=== PATIENT | female | born 1955 | race Caucasian/White ===

== ENCOUNTER 2025-07-10 13:11 | Outpatient (CLI) | payer BC, MEDICARE ==
[~2025-07-10 13:11] MED LIST: LISI40TA20 PO; NAPR-1168 PO; OMEP40CA21 PO
--- NOTE | 2025-07-10 15:44 | VASCULAR REPORT ---
SEGMENTAL PRESSURES/ANKLE-BRACHIAL INDEX REASON FOR EXAMINATION: Peripheral arterial disease. Follow-up left leg postsurgery. COMPARISON: VASC VL ARTERIAL on DOS: 07/10/25, VASC VL ARACELIS on DOS: 06/02/25, VASC VL VENOUS on DOS: 05/30/25, VASC VL VENOUS on DOS: 12/21/23 TECHNIQUE: Patient evaluation includes blood pressures, ankle-brachial indices, and segmental doppler waveform analysis at rest and post exercise when applicable. Toe brachial indices (TBI) are taken when necessary. FINDINGS: SEGMENTAL BLOOD PRESSURES ARE FOLLOWS: RIGHT: Brachial: 148 mm Hg. Posterior tibial: 80 mm Hg. Anterior tibial: 70 mm Hg. The right ARACELIS is moderately depressed with a value of 0.54. LEFT: Brachial: 138 mm Hg. Posterior tibial: 128 mm Hg. Anterior tibial: 124 mm Hg. The left ARACELIS is minimally depressed with a value of 0.93. IMPRESSION: Moderately depressed right ARACELIS at 0.54. This is similar to the prior study on 06/02/2025. Minimally depressed left ARACELIS 0.93. This is improved compared with the prior study on 06/02/2025. Note: Non-compressible/calcified vessels such as seen in the diabetic/ESRD population render falsely elevated and inaccurate segmental pressures. Correlation with doppler Ultrasound evaluation of the lower extremities is recommended in this population.
--- NOTE | 2025-07-10 16:14 | VASCULAR REPORT ---
BILATERAL LOWER EXTREMITY ARTERIAL DUPLEX ULTRASOUND STUDY: REASON FOR EXAM: Postoperative follow-up of the left leg. Peripheral arterial disease. TECHNIQUE: The full lengths of the arterial segments were evaluated with color- flow Doppler ultrasound. Suspected abnormalities were evaluated with ballesteros scale ultrasound. Manufacturing Quality Technician spectral Doppler waveforms, with velocity measurements were obtained. Spectral waveforms with velocity measurements were obtained 2 to 4 cm central to any areas of significant stenosis. Common femoral, superficial femoral, popliteal, posterior tibial, anterior tibial, and dorsal pedal arteries were evaluated. FINDINGS: Right: There is extensive atherosclerotic plaque throughout the right lower extremity. The common femoral artery waveform is monophasic with a brisk upstroke. There is abrupt occlusion of the distal SFA with distal reconstitution by arterial collaterals. There is monophasic flow in the popliteal artery. The posterior tibial and anterior tibial arteries are patent with monophasic waveforms. The peroneal artery is not identified. Left: There is diffuse atherosclerotic plaque throughout the left lower extremity. The common femoral artery waveform is multiphasic with a brisk upstroke. There is a widely patent graft in the left thigh with multi phasic flow. There is multi phasic flow in the anterior tibial and posterior tibial ar teries. The peroneal artery is not identified. IMPRESSION: Occlusion of the distal right SFA with distal reconstitution by arterial collaterals. Monophasic flow beyond the reconstitution. Widely patent graft in the left thigh. Multiphasic flow below the knee.
== END 2025-07-10 23:59 | disposition home or self-care (01) ==
LOC: VAS 13:11
PROVIDERS: ATTEND Surgery
DX: Z48.812 Encounter for surgical aftercare following surgery on the circulatory system (principal); I70.203 Unspecified atherosclerosis of native arteries of extremities, bilateral legs
CPT/HCPCS: 93922; 93925

== ENCOUNTER 2025-08-15 14:13 | Emergency (ER) | payer BC ==
[~2025-08-15] VITALS: Ht 172.7 cm; Wt 82.7 kg
--- NOTE | 2025-08-15 14:58 | Physician Documentation ---
History of Present Illness ~ Chief Complaint: Leg Pain Stated Complaint: LEG PAIN Time Seen by MD: 14:48 Source: patient Mode of Arrival: Wheelchair Exam Limitations: no limitations HPI 70-year-old female had a recent vascular procedure by Dr. Lopez has been having some mild leg pain to the left leg but it is experiencing more increased pain and feels like there is a lump she has noticed. Patient tried to call the office but her next appointment is next week no shortness of breath or chest pain Medication Reconciliation Allergies: Coded Allergies: propofol (Verified Allergy, Unknown, NERVE DAMAGE, 08/15/25) Scheduled Lisinopril* (Lisinopril*), 1 TAB PO DAILY, (Reported) Omeprazole (Prilosec), 1 CAP PO DAILY, (Reported) Scheduled PRN Naproxen (Naproxen), 1 TAB PO DAILY PRN for pain, (Reported) Past Medical History Past Medical History: *CARDIOVASCULAR*, Vascular Disease Past Surgical History: noncontributory Lives with: Family Lives In: Home Occupation: disabled Review of Systems All Other Systems at this time: Reviewed and Negative Integumentary: Reports: see HPI Physical Exam Vital Signs: RN Vital Signs have been reviewed: Yes, Temperature: 97.8, Source: Oral, Heart Rate: 84, Respiratory Rate: 16, BP: 149/91, Pulse Oximetry: 98, Weight: 82.700 Oxygen Flow Rate: 0 Physical Exam General: Alert, no apparent distress. HEENT: moist mucous membranes. Neck: Full range of motion. Respiratory: No respiratory distress speaking in full sentences Chest: No accessory muscle use. Cardiovascular: Appears well perfused Neurologic: Oriented x4. Psychiatric: Normal mood and affect. Skin: Normal color, warm and dry. No edema, no ecchymosis. Progress Results/Orders Results/Orders Orders - MONIKA NEWELL NP Vl Venous (08/15/25 15:01) Vl Arterial (08/15/25 15:05) Vl Antonia (08/15/25 ) Completed Orders - MONIKA NEWELL NP Vl Venous (08/15/25 15:01) Vital Signs 08/15/25 08/15/25 08/15/25 14:34 16:04 16:56 Temp 97.8 97.8 Pulse 84 81 Resp 16 18 18 B/P (MAP) 149/91 143/101 (115) Pulse Ox 98 100 O2 Flow Rate 0 0 Medical Decision Making Additional information obtaine: old records Findings Patient with recent left femoral bypass was having increased pain and a small knot. Verbal initial report on the ultrasound was negative for any clots good blood flow CMS intact. This could be compensatory musculoskeletal pain as patient has had to shift and move differently due to the recent procedure. Patient will follow up with surgeon next week and is also awaiting surgical approval for the right leg. Patient will require pain management until then. General Diff Dx:Considerations: Include: Hematoma, Other Knee Diff Dx:Considerations: Unlikely: Abrasion, Arthritis, Contusion, DJD, Fracture-femur, Fracture-fibula, Fracture-patella, Fracture-tibia, Gout, Hematoma, Laceration, Meniscus injury, Neurovascular injury, Open fracture, Rheumatoid arthritis, Septic, Sprain, Sprain-MCL, Sprain-LCL, Sprain-ACL, Sprain-PCL, Other Ankle Diff Dx:Considerations: Unlikely: Abrasion, Arthritis, Contusion, DJD, Fracture-metatarsal, Fracture-fibula, Fracture-tarsal, Fracture-tibia, Gout, Hematoma, Laceration, Malunion, Neurovascular injury, Nonunion, Open fracture, Osteomyelitis, Rheumatoid arthritis, Sprain, Septic, Ulcer, Other Foot Diff Dx:Considerations: Unlikely: Abrasion, Arthritis, Cellulitis, Contusion, Dislocation, DJD, Fracture-metatarsal, Fracture-phalynx, Fracture- tarsal, Gout, Hematoma, Ingrown toenail, Laceration, Malunion, Neurovascular injury, Open fracture, Paronychia, Puncture, Rheumatoid, Sprain, Septic, Subungual hematoma, Ulcer, Other Toe Diff Dx:Considerations: Unlikely: Abrasion, Cellulitis, Contusion, Dislocation, Felon, Fracture, Hematoma, Laceration, Neurovascular injury, Open fracture, Paronychia, Subungual hematoma, Other Departure Time of Disposition: 17:20 Disposition: 01 HOME / SELF CARE / HOMELESS Impression: Primary Impression: Leg cramps Additional Impression: Pain Condition: Stable Discharge Instructions: RICE Therapy for Routine Care of Injuries, [id number] Additional Instructions: Maintain appointment with surgeon take medications as prescribed monitor for any new or worsening symptoms rest and stay well hydrated feel free to return to the ER if pain worsens Referrals: NO PRIMARY CARE PROVIDER (PCP) Prescriptions Hydrocodone Bit/Acetaminophen (Hydrocodon-Acetaminophn 10-325 tablet) 10mg- 325mg Tablet 1 TAB PO Q12H PRN PRN for pain for 5 Days, #10 TAB Prov: MONIKA NEWELL NP 08/15/25 Education Educated: Patient Educated regarding: diagnosis, treatment, need for follow up Signature Scribe Signature: No scribe Attestation: The note accurately reflects work and decisions made by me.Monika RIOS 08/15/25 14:57 MONIKA NEWELL NP Aug 15, 2025 14:58
[2025-08-15 16:56] VITALS: BP 143/101; PULSE 81; O2SAT 100
--- NOTE | 2025-08-15 17:17 | VASCULAR REPORT ---
LEFT LOWER EXTREMITY VENOUS DUPLEX REASON FOR EXAMINATION: Left lower extremity pain and edema. COMPARISON: VASC VL ARACELIS on DOS: 08/15/25, VASC VL ARACELIS on DOS: 07/10/25, CT CTA ABDOMEN LOWER EXTR RUNOFF on DOS: 06/03/25, VASC VL ARACELIS on DOS: 06/02/25, VASC VL VENOUS on DOS: 05/30/25 TECHNIQUE: Using real-time freeze-frame technique with a high-frequency transducer, multiple longitudinal and transverse sections were obtained. Simultaneous color flow and spectral Doppler imaging was performed. FINDINGS: There is good visualization of the deep venous system with no intraluminal filling defects identified. Normal venous compressibility is seen and there is flow augmentation. Color flow Doppler imaging is unremarkable. There is partial visualization of an arterial graft in the left thigh. IMPRESSION: NO EVIDENCE OF DEEP VENOUS THROMBOSIS.
[2025-08-15] MEDS ORDERED: HYDR-3972 PO (17:22)
[2025-08-15 17:43] VITALS: RESP 18
[2025-08-15] MEDS: HYDROcodone/acetaminophen 10/325mg tab PO ONE (17:43)
[2025-08-15 17:46] VITALS: TEMP 97.8
--- NOTE | 2025-08-15 18:06 | VASCULAR REPORT ---
EXAM: VASC VL ARACELIS ANKLE/BRACHIAL INDEX CLINICAL HISTORY: Pain Peripheral vascular disease COMPARISON: VASC VL ARTERIAL on DOS: 08/15/25, VASC VL VENOUS on DOS: 08/15/25, VASC VL ARACELIS on DOS: 07/10/25, VASC VL ARTERIAL on DOS: 07/10/25, CT CTA ABDOMEN LOWER EXTR RUNOFF on DOS: 06/03/25 TECHNIQUE: ARACELIS: Right Left 0.58 .97 Pulse volume waveforms: Normal triphasic waveform on the left. Abnormal monophasic waveform on the right. IMPRESSION: ARACELIS values suggestive of moderate atherosclerosis. Monophasic waveform on the right suggesting a high-grade stenosis. 1.0-1.4: normal 0.91-0.99 borderline 0.9: abnormal (i.e. PAD) 0.4-0.9: [id number] PAD <0.4: suggestive of severe PAD
--- NOTE | 2025-08-15 18:07 | VASCULAR REPORT ---
BILATERAL LOWER EXTREMITY ARTERIAL DUPLEX ULTRASOUND STUDY: REASON FOR EXAM: Peripheral arterial disease COMPARISON: Bilateral lower extremity arterial duplex 07/10/2025 TECHNIQUE: The full lengths of the arterial segments were evaluated with color- flow Doppler ultrasound. Suspected abnormalities were evaluated with ballesteros scale ultrasound. Patient Accounts Manager spectral Doppler waveforms, with velocity measurements were obtained. Spectral waveforms with velocity measurements were obtained 2 to 4 cm central to any areas of significant stenosis. Common femoral, superficial femoral, popliteal, posterior tibial, anterior tibial, and dorsal pedal arteries were evaluated. FINDINGS: Right: There is diffuse atherosclerotic plaque throughout the right lower extremity. The common femoral artery waveform is multiphasic with a brisk upstroke. The proximal SFA is patent with monophasic waveforms. There is occlusion in the midportion of the SFA. There is monophasic , low velocity flow in the distal SFA and popliteal artery. There is monophasic flow in posterior tibial , anterior tibial, and dorsal pedal arteries. There is monophasic flow in the peroneal artery. Left: There is diffuse atherosclerotic plaque throughout the left lower extremity. The common femoral artery waveform is multiphasic with a brisk upstroke. There is a bypass graft from the common femoral artery to the posterior tibial artery appears patent with multi phasic flow throughout. There is multi phasic flow in the posterior tibial, peroneal, anterior tibial, and dorsal pedal arteries. In the area of palpable lump in the upper left calf, there is trace fluid about the bypass graft. The left SFA and popliteal arteries were not evaluated. IMPRESSION: Similar appearance of occlusion in the midportion of the right SFA with monophasic reconstitution. Monophasic flow throughout the right lower extremity beyond the occlusion. Widely patent left common femoral to posterior tibial artery bypass graft. Multiphasic flow in WEAPONS SPECIALIST, ROBB, dorsal pedal, and peroneal arteries in the left lower leg.
== END 2025-08-15 17:47 | disposition home or self-care (01) ==
LOC: ER 14:14
DX: M79.605 Pain in left leg (principal); R25.2 Cramp and spasm; Z88.6 Allergy status to analgesic agent; Z79.899 Other long term (current) drug therapy
CPT/HCPCS: 93922; 93925; 93971; 99284

== ENCOUNTER 2025-08-19 11:32 | Outpatient (CLI) | payer BC ==
[~2025-08-19 11:32] MED LIST changes: +HYDR-3972 PO
--- NOTE | 2025-08-19 13:55 | VASCULAR REPORT ---
BILATERAL Lower Extremity Arterial Duplex Date: 08/19/2025 11:47 AM Clinical History: Comparison: VASC VL ARACELIS on DOS: 08/15/25, VASC VL ARTERIAL on DOS: 08/15/25, VASC VL VENOUS on DOS: 08/15/25, VASC VL ARACELIS on DOS: 07/10/25, VASC VL ARTERIAL on DOS: 07/10/25 Technique: Duplex Doppler evaluation including color Doppler and spectral/pulsed waveform analysis of the lower extremity arteries was performed. Finding: Surgery/Intervention Bypass Graft 1 : Site : Left femoral-posterior tibial VELOCITY AND DOPPLER WAVEFORM ANALYSIS RIGHT cm/se Waveform Severity LEFT cm/se Waveform Severity c c dCFA dCFA 60.6 Multiphasic Prof Fem Prof Fem 114.7 Multiphasic Art. Art. Fem Art Fem Art 0.0 Occluded Prox. Prox. Fem Art Fem Art 0.0 Occluded Mid. Mid. Fem Art Fem Art 18.3 Reconstitute Dist. Dist d Pop Art(AK) Pop Art(AK) 26.9 Monophasie Pop Art(BK) Pop Art(BK) 16.9 Monophasic PHARMACY DISTRICT MANAGER Prox. PHARMACY DISTRICT MANAGER Prox. 17.7 Monophasic PHARMACY DISTRICT MANAGER Dist. PHARMACY DISTRICT MANAGER Dist. 7.6 Monophasic Per Art Dist. Per Art Dist. 11.7 Monophasic ROBB Dist. ROBB Dist. 10.1 Monophasic Prox. Prox. 0.0 Occluded Anastomosis Anastomosis Proximal Proximal 0.0 Occluded Mid Mid 0.0 Occluded Distal Distal 0.0 Occluded Distal Distal 0.0 Occluded Anastomosis Anastomosis Critical Value CONCLUSION Changes noted from previous exam performed 08/15/2025 The left femoral-posterior tibial bypass graft appears acutely occluded throughout. Possible crimped section of the visualize bypass graft at the level of the knee. The [place] superficial femoral artery also appears occluded in the proximal and mid sections, reconstituted monophasic flow seen in the left distal superficial femoral artery with triple-vessel runoff to the foot. Multiphasic flow is seen in the left common femoral artery and profunda femoral artery. Monophasic flow seen in the distal superficial femoral artery, popliteal artery, posterior tibial artery, peroneal artery and anterior tibial artery. Unable to perform ankle-brachial index due to diminished flow in the left pedal arteries. Findings verbally relayed to ordering physician. Patient was taken to the emergency room.
[2025-08-19] MEDS ORDERED: APIX2.5T PO (14:38)
[2025-08-19] MEDS ORDERED: ASPI-1265 PO (14:38)
[2025-08-21] MEDS ORDERED: ASPI-1397 PO (07:22)
[2025-08-21] MEDS ORDERED: NORT25CA PO (07:22)
[2025-08-21] MEDS ORDERED: APIX5TAB3 PO (07:22)
== END 2025-08-19 23:59 | disposition home or self-care (01) ==
LOC: VAS 11:32
PROVIDERS: ATTEND Surgery
DX: I73.9 Peripheral vascular disease, unspecified (principal)
CPT/HCPCS: 93926

== ENCOUNTER 2025-09-26 12:25 | Outpatient (CLI) | payer BC, MEDICARE ==
[~2025-09-26 12:25] MED LIST changes: +APIX5TAB3 PO; +ASPI-1397 PO; -HYDR-3972 PO; -LISI40TA20 PO; -NAPR-1168 PO; +NORT25CA PO
--- NOTE | 2025-09-26 14:37 | VASCULAR REPORT ---
BILATERAL Lower Extremity Arterial Duplex Date: 09/26/2025 12:42 PM CLINICAL HISTORY: Bypass graft follow-up COMPARISON: ANGIO ANGIO LOWER EXTREMITY (A) on DOS: 08/20/25, CT CTA LOWER EXTREMITY on DOS: 08/19/25, VASC VL ARTERIAL on DOS: 08/19/25, VASC VL ARTERIAL on DOS: 08/15/25, VASC VL VENOUS on DOS: 08/15/25 TECHNIQUE: Duplex Doppler evaluation including color Doppler and spectral/pulsed waveform analysis of the lower extremity arteries was performed. Finding: VELOCITY AND DOPPLER WAVEFORM ANALYSIS RIGHT cm/se Waveform Severity LEFT cm/se Waveform Severity C c dCFA dCFA 110.3 Multiphasic Prof Fem Prof Fem 88.3 Multiphasic Art. Art. Fem Art Fem Art Occluded Prox. Prox Fem Art Fem Art Occluded Mid. Mid. Fem Art Fem Art 23.3 Reversal Dist Dist. Pop Art(AK) Pop Art(AK) 29.4 Reversal Pop Art(BK) Pop Art(BK) 56.1 Reversal MECHANICAL PRODUCT DESIGN ENGINEER Dist. MECHANICAL PRODUCT DESIGN ENGINEER Dist. 56.1 Multiphasic Per Art Dist. Per Art Dist. 51.1 Multiphasic ROBB Dist. ROBB Dist. 61.8 Multiphasic DPA DPA 73.9 Multiphasic RIGHT cm/se Waveform Severity LEFT cm/se Waveform Severity C C Prox. Prox. 58.0 Multiphasic Anastomosis Anastomosis Proximal Proximal 61 Multiphasic Mid Mid 51.0 Multiphasic Distal Distal 76.0 Multiphasic Distal Distal 127.0 Multiphasic Anastomosis Anastomosis CONCLUSION Left SFA Prox and mid no flow detected, Left SFA distal and Pop with reversal of flow. Left BPG and remaining little shell tribe vessels appear patent with multiphasic flow. No stenosis visualized.
--- NOTE | 2025-09-26 14:38 | VASCULAR REPORT ---
[facility] Vascular Department [facility] [address] [place] [address] [email or web address] KIMMY JENNIFER Name : SHERRIE MOULTON Date : 09/26/2025 TESTING Accession# : [id number] Birthdate : 1955 Sex :F Age : 70Y Polysomnograph Tech : Jaimee Hassan RDMS/RVT Referring Dr. : ELBA ROMERO, Preliminary Report The above named patient was referred for a PHYSIOLOGIC ARTERIAL DOPPLER EVALUATION. The evaluation includes blood pressures, ankle brachial indices (ARACELIS), and segmental Doppler waveform analysis at rest and post exercise when applicable. Toe brachial indices (TBI) taken when necessary. Patient OUT-PATIENT Enaation: Ankle to Brachial Index Indleations Left Fem TP Bypass graft Surgery/Intervention Bypass Graft 1 : Pressures/Indices Right ARACELIS Left AB Brachial 130mmHg Brachial 142mmHg Ankle(PT) 80mmHg 0.56 Ankle(PT) 120mmHg 0.85 Ankle(DP) 80mmHg 0.56 Ankle(DP) 106mmHg 0.75 Impression: Right leg monophasic, Left leg multiphasic. Right ARACELIS at rest 0.56, Left ARACELIS at rest 0.85 indicating moderate disease bilaterally
== END 2025-09-26 23:59 | disposition home or self-care (01) ==
LOC: RAD 12:25
PROVIDERS: ATTEND Surgery
DX: I73.9 Peripheral vascular disease, unspecified (principal)
CPT/HCPCS: 93922; 93926

== ENCOUNTER 2025-10-10 08:43 | Outpatient (CLI) | payer MEDICARE, BC ==
[~2025-10-10 08:43] MED LIST changes: +iohexol 350 MG/ML 50ML vial IV ONE
[2025-10-10 09:40] LABS: CREATININE 0.85 MG/DL (0.40-0.90); TOTAL CARBON DIOXIDE 28.4 MMOL/L (24-32); eGFR 66 ML/MIN
--- NOTE | 2025-10-10 11:25 | RADIOLOGY REPORT ---
INDICATION: PERIPHERAL VASCULAR DISEASE, UNSPECIFIED TECHNIQUE:CT axial images of the abdomen and pelvis are obtained with, lower extremities intravenous contrast. Coronal and sagittal reformats were obtained. COMPARISON: 08/19/2025 ultrasound 09/26/2025 FINDINGS: Abdominal aortic atherosclerotic disease and mild eccentric mural wall thrombus. Dilatation of the infrarenal abdominal aorta to 2.2 cm. Common, external iliac arteries demonstrate no high-grade stenoses. Moderate calcification right COMMERCIAL SERVICE TECHNICIAN. Right SFA demonstrates multifocal moderate to high-grade stenosis of the proximal to mid segment. There is occlusion of the distal right SFA and reconstitution of the right popliteal artery P1 segment. Right popliteal artery demonstrates multifocal moderate grade stenosis, 50-70% stenosis. There is ex tensive calcification of the right anterior tibial, posterior tibial and peroneal arteries which appear patent to the level of the right ankle. The left superficial femoral artery is occluded from its origin. There is a left femoral artery to posterior tibial artery bypass graft which is also occluded. There is reconstitution of the left popliteal artery P1 segment. Left popliteal artery demonstrates diffuse moderate to high-grade stenosis, 50-90% stenoses. The left anterior tibial, posterior tibial and peroneal arteries are highly calcified. The left anterior tibial and peroneal arteries are patent to the level of the left ankle. Left posterior tibial artery is extremely small in caliber and appears to be occluded distally. Bibasilar atelectasis. Pulmonary emphysematous changes. Adrenal glands, spleen, pancreas unremarkable. No enhancing hepatic lesion. No CT evidence for cholelithiasis. Left renal cysts measuring up to 1.6 cm. Moderate size hiatal hernia. Stomach is partially distended. Small bowel loops are normal in caliber. Colonic diverticular disease. Moderate volume stool in the colon. Normal appendix. Bladder partially distended. No free pelvic fluid. No inguinal lymphadenopathy. Small to moderate right suprapatellar effusion. [id number] bilateral sacroiliac degenerative joint disease. Moderate to severe lumbar degenerative disc disease. IMPRESSION: Severe peripheral arterial disease. Occlusion of the distal right SFA with reconstitution of the right popliteal artery. Occlusion of the left SFA. Occlusion of the left common femoral artery to left posterior tibial artery bypass graft. Extensive calcification disease of the bilateral infrapopliteal/tibial vasculature. Likely occlusion of the left posterior tibial artery distally. Colonic diverticular disease.
== END 2025-10-10 23:59 | disposition home or self-care (01) ==
LOC: RAD 08:43
PROVIDERS: ATTEND Surgery
DX: Z01.818 Encounter for other preprocedural examination (principal); I73.9 Peripheral vascular disease, unspecified; I82.431 Acute embolism and thrombosis of right popliteal vein; I70.8 Atherosclerosis of other arteries; M25.461 Effusion, right knee; M46.1 Sacroiliitis, not elsewhere classified; M51.369 Other intervertebral disc degeneration, lumbar region without mention of lumbar back pain or lower extremity pain; K57.30 Diverticulosis of large intestine without perforation or abscess without bleeding; N28.1 Cyst of kidney, acquired; K44.9 Diaphragmatic hernia without obstruction or gangrene; R19.5 Other fecal abnormalities; J43.8 Other emphysema; J98.11 Atelectasis; I70.0 Atherosclerosis of aorta
CPT/HCPCS: 36415; 75635; 80048; Q9967